=== PATIENT | female | born 1945 | race Caucasian/White ===

== ENCOUNTER → 2019-12-05 | Outpatient (CLI) | payer MEDICARE | END | disposition home or self-care (01) | LOC: CFH 12:02 | PROVIDERS: ATTEND Family Medicine | DX: N60.02 Solitary cyst of left breast (principal); N63.10 Unspecified lump in the right breast, unspecified quadrant | CPT/HCPCS: 76642; 77066; G0279 ==

== ENCOUNTER 2019-12-22 11:54 | Outpatient (CLI) | payer MEDICARE ==
[2019-12-22] MEDS ORDERED: SODIUM BICARBONATE 4.0%, 5ML ONE (12:30)
[2019-12-22] MEDS ORDERED: LIDOCAINE 1%, 20ML ONE (12:30)
[2019-12-22] MEDS ORDERED: LIDOCAINE 1%-EPI 1:100K, 20ML ONE (12:30)
== END 2019-12-22 23:59 | disposition home or self-care (01) ==
LOC: CFH 11:54
PROVIDERS: ATTEND Family Medicine
DX: N64.52 Nipple discharge (principal); N63.10 Unspecified lump in the right breast, unspecified quadrant; D24.1 Benign neoplasm of right breast
CPT/HCPCS: 19083; 77065; 88305; J3490; 19285

== ENCOUNTER 2020-03-29 08:55 | Outpatient (CLI) | payer MEDICARE ==
[2020-03-29] MEDS ORDERED: DULO60CA7 PO (09:52)
[2020-03-29] MEDS ORDERED: LOSA1TAB19 PO (09:52)
[2020-03-29] MEDS ORDERED: PANT40TA5 PO (09:52)
[2020-03-29] MEDS ORDERED: MULT-658 PO (09:52)
[2020-03-29] MEDS ORDERED: DULO30CA2 PO (09:52)
[2020-03-29] MEDS ORDERED: AMLO-150 PO (09:52)
[2020-03-29] MEDS ORDERED: POLY17PO5 PO (09:52)
[2020-03-29] MEDS ORDERED: ACET-1600 PO (09:52)
[2020-03-29] MEDS ORDERED: oxybutynin PO (09:52)
[2020-03-29] MEDS ORDERED: ATOR20TA37 PO (09:52)
[2020-03-29] MEDS ORDERED: METF500T17 PO (09:52)
[2020-03-29 10:30] LABS: ALBUMIN 3.9 g/dL (3.4-5.0); ANION GAP 8 mmol/L (5-15); CALCIUM 9.6 mg/dL (8.5-10.1); CHLORIDE 105 mmol/L (98-107)
[2020-03-29 10:33] LABS: ALANINE AMINOTRANSFERASE 20 U/L (12-78); ALKALINE PHOSPHATASE 98 U/L (45-117); BILIRUBIN,TOTAL 0.6 mg/dL (0.2-1.0); CREATININE 0.78 mg/dL (0.55-1.02); TOTAL PROTEIN 7.5 g/dL (6.4-8.2)
== END 2020-03-29 23:59 | disposition home or self-care (01) ==
LOC: STAR 08:55
PROVIDERS: ATTEND Surgery
DX: Z01.818 Encounter for other preprocedural examination (principal); Z11.59 Encounter for screening for other viral diseases
CPT/HCPCS: 36415; 80053; 93005; U0001

== ENCOUNTER 2020-04-02 05:43 | Day surgery (SDC) | payer MEDICARE ==
[~2020-04-02] VITALS: Ht 171.4 cm; Wt 99.8 kg
[~2020-04-02 05:43] MED LIST: ACET-1600 PO; AMLO-150 PO; ATOR20TA37 PO; DULO30CA2 PO; DULO60CA7 PO; LOSA1TAB19 PO; METF500T17 PO; MULT-658 PO; PANT40TA5 PO; POLY17PO5 PO; oxybutynin PO
[2020-04-02] MEDS ORDERED: CHLORHEXIDINE 15 ML UDC MM ONE (06:00)
[2020-04-02] MEDS ORDERED: LACTATED RINGERS 1,000 ML IV SCH (06:00)
[2020-04-02 06:05] VITALS: BP 132/84
[2020-04-02] MEDS ORDERED: BUPIVACAINE/PF-EPI 0.5% 1:200K ONE (06:52)
[2020-04-02] MEDS ORDERED: FENTANYL PF 100 MCG/2ML ONE ×2 (07:10→07:59)
[2020-04-02] MEDS ORDERED: MIDAZOLAM 1 MG/ML, 2ML ONE (07:10)
[2020-04-02] MEDS ORDERED: ONDANSETRON ODT 8 MG ONE (07:12)
[2020-04-02] MEDS ORDERED: ACETAMINOPHEN 500 MG TABLET ONE (07:13)
[2020-04-02] MEDS ORDERED: DEXAMETHASONE 4 MG/ML, 1ML ONE (07:18)
[2020-04-02] MEDS ORDERED: CEFAZOLIN 1,000 MG ONE (07:18)
[2020-04-02] MEDS ORDERED: PROPOFOL 10 MG/ML, 20ML ONE (07:18)
[2020-04-02] MEDS ORDERED: ONDANSETRON ODT 8 MG PO ONE (07:30)
[2020-04-02] MEDS ORDERED: ACETAMINOPHEN 500 MG TABLET PO ONE (07:30)
[2020-04-02] MEDS ORDERED: OXYcodone 5 MG/5 ML ORAL.SOL UDC ONE (07:59)
[2020-04-02] MEDS ORDERED: KETOROLAC 30 MG/1 ML ONE (07:59)
[2020-04-02] MEDS ORDERED: ONDANSETRON 2MG/ML, 2ML IVPush PRN (08:00)
[2020-04-02] MEDS ORDERED: HYDROmorphone 1 MG/ML, 1ML INJ IVPush PRN (08:00)
[2020-04-02] MEDS ORDERED: OXYcodone 5 MG/5 ML ORAL.SOL UDC PO PRN (08:00)
[2020-04-02] MEDS ORDERED: KETOROLAC 30 MG/1 ML IV PRN (08:00)
[2020-04-02] MEDS ORDERED: FENTANYL PF 100 MCG/2ML IV PRN (08:00)
== END 2020-04-02 10:15 | disposition home or self-care (01) ==
LOC: OR 05:43
PROVIDERS: ATTEND Surgery
DX: D24.1 Benign neoplasm of right breast (principal); I10 Essential (primary) hypertension; E11.40 Type 2 diabetes mellitus with diabetic neuropathy, unspecified; E78.00 Pure hypercholesterolemia, unspecified; M85.80 Other specified disorders of bone density and structure, unspecified site; M19.90 Unspecified osteoarthritis, unspecified site; Z79.84 Long term (current) use of oral hypoglycemic drugs; Z79.899 Other long term (current) drug therapy; Z87.891 Personal history of nicotine dependence; Z88.5 Allergy status to narcotic agent; Z90.49 Acquired absence of other specified parts of digestive tract; Z90.710 Acquired absence of both cervix and uterus; Z98.890 Other specified postprocedural states; Z80.3 Family history of malignant neoplasm of breast; Z83.3 Family history of diabetes mellitus; Z82.49 Family history of ischemic heart disease and other diseases of the circulatory system; Z80.8 Family history of malignant neoplasm of other organs or systems; Z83.42 Family history of familial hypercholesterolemia
CPT/HCPCS: 19125; 76098; 82962; 88307; J0690; J1100; J1885; J2250; J2704; J3010; J7120; Q0162

== ENCOUNTER 2020-04-18 10:45 | Outpatient (CLI) | payer MEDICARE ==
[2020-04-18] MEDS ORDERED: REGADENOSON 0.4 MG/5 ML SYRINGE ONE (13:54)
== END 2020-04-18 23:59 | disposition home or self-care (01) ==
LOC: CFH 10:45
PROVIDERS: ATTEND Internal Medicine Cardiovascular Disease
DX: I10 Essential (primary) hypertension (principal); Z82.49 Family history of ischemic heart disease and other diseases of the circulatory system
CPT/HCPCS: 78452; 93017; 93306; A9502; J2785

== ENCOUNTER 2021-01-16 10:12 | Outpatient (CLI) | payer MEDICARE ==
[~2021-01-16 10:12] MED LIST changes: -PANT40TA5 PO; +PANT40TA6 PO
== END 2021-01-16 23:59 | disposition home or self-care (01) ==
LOC: CFH 10:12
PROVIDERS: ATTEND Internal Medicine
DX: Z02.9 Encounter for administrative examinations, unspecified (principal)

== ENCOUNTER → 2021-02-26 | Outpatient (CLI) | payer MEDICARE | END | disposition home or self-care (01) | LOC: CFH 09:46 | PROVIDERS: ATTEND Internal Medicine | DX: N63.12 Unspecified lump in the right breast, upper inner quadrant (principal); N64.9 Disorder of breast, unspecified | CPT/HCPCS: 76642; 77062; 77066; G0279 ==

== ENCOUNTER → 2021-03-29 | Outpatient (CLI) | payer MEDICARE ==
[~2021-03-29] MED LIST changes: +ARIP2TAB2 PO; +ATOR40TA78 PO; +CARV6.2512 PO; +CHOL10003 PO; +HYDR1TAB53 PO; +LIDOCAINE 1%-EPI 1:100K, 20ML ONE; +LOSA25TA25 PO
== END | disposition home or self-care (01) ==
LOC: CFH 09:47
PROVIDERS: ATTEND Surgery
DX: D24.1 Benign neoplasm of right breast (principal); E11.9 Type 2 diabetes mellitus without complications; I10 Essential (primary) hypertension; E78.00 Pure hypercholesterolemia, unspecified; M19.90 Unspecified osteoarthritis, unspecified site; M85.80 Other specified disorders of bone density and structure, unspecified site; Z79.84 Long term (current) use of oral hypoglycemic drugs; Z79.899 Other long term (current) drug therapy; Z87.891 Personal history of nicotine dependence; Z90.49 Acquired absence of other specified parts of digestive tract; Z90.710 Acquired absence of both cervix and uterus; Z98.890 Other specified postprocedural states; Z82.49 Family history of ischemic heart disease and other diseases of the circulatory system; Z83.3 Family history of diabetes mellitus; Z80.8 Family history of malignant neoplasm of other organs or systems
CPT/HCPCS: 19285; 77065

== ENCOUNTER → 2021-04-02 | Outpatient (CLI) | payer MEDICARE ==
[~2021-04-02] MED LIST changes: -LIDOCAINE 1%-EPI 1:100K, 20ML ONE
[2021-04-02 12:42] LABS: CHLORIDE 105 mmol/L (98-107)
[2021-04-02 12:52] LABS: ALANINE AMINOTRANSFERASE 19 U/L (12-78); ALBUMIN 3.6 g/dL (3.4-5.0); ALKALINE PHOSPHATASE 99 U/L (45-117); ANION GAP 4 mmol/L (5-15); BILIRUBIN,TOTAL 0.4 mg/dL (0.2-1.0); CALCIUM 9.2 mg/dL (8.5-10.1); CREATININE 0.63 mg/dL (0.55-1.02)
== END | disposition home or self-care (01) ==
LOC: STAR 10:22
PROVIDERS: ATTEND Surgery
DX: Z01.818 Encounter for other preprocedural examination (principal); N63.10 Unspecified lump in the right breast, unspecified quadrant; I49.1 Atrial premature depolarization; Z20.822 Contact with and (suspected) exposure to COVID-19
CPT/HCPCS: 36415; 80053; 93005; U0003; U0005

== ENCOUNTER → 2021-04-11 | Outpatient (CLI) | payer MEDICARE | END | disposition home or self-care (01) | LOC: STAR 12:10 | PROVIDERS: ATTEND Internal Medicine | DX: Z20.822 Contact with and (suspected) exposure to COVID-19 (principal) | CPT/HCPCS: U0003; U0005 ==

== ENCOUNTER 2021-04-15 12:19 | Day surgery (SDC) | payer MEDICARE ==
[~2021-04-15] VITALS: Ht 172.7 cm; Wt 97.8 kg
[2021-04-15] MEDS ORDERED: CHLORHEXIDINE 15 ML UDC PO ONE (13:00)
[2021-04-15] MEDS ORDERED: LACTATED RINGERS 1,000 ML IV SCH (13:00)
[2021-04-15 13:01] VITALS: BP 129/72
[2021-04-15] MEDS ORDERED: CHLORHEXIDINE 15 ML UDC ONE (13:05)
[2021-04-15] MEDS ORDERED: DEXAMETHASONE 4 MG/ML, 1ML ONE (14:16)
[2021-04-15] MEDS ORDERED: ONDANSETRON 2MG/ML, 2ML ONE (14:16)
[2021-04-15] MEDS ORDERED: FENTANYL PF 100 MCG/2ML ONE ×3 (14:16→15:21)
[2021-04-15] MEDS ORDERED: CEFAZOLIN 1,000 MG ONE (14:16)
[2021-04-15] MEDS ORDERED: PROPOFOL 10 MG/ML, 20ML ONE (14:16)
[2021-04-15] MEDS ORDERED: PHENYLEPHRINE 10 MG/ML ONE (14:16)
[2021-04-15] MEDS ORDERED: HYDR-2214 PO (14:24)
[2021-04-15] MEDS ORDERED: LABETALOL 5MG/ML, 20ML IV PRN (14:30)
[2021-04-15] MEDS ORDERED: ACETAMINOPHEN 325 MG TABLET PO PRN (14:30)
[2021-04-15] MEDS ORDERED: hydrALAzine 20 MG/ML, 1ML IV PRN (14:30)
[2021-04-15] MEDS ORDERED: MEPERIDINE/PF 25MG/0.5ML IVPush PRN (14:30)
[2021-04-15] MEDS ORDERED: morphine SULFATE 10 MG/ML, 1ML IVPush PRN (14:30)
[2021-04-15] MEDS ORDERED: OXYcodone 5 MG/5 ML ORAL.SOL UDC PO PRN (14:30)
[2021-04-15] MEDS ORDERED: HYDROmorphone 1 MG/ML, 1ML INJ IVPush PRN (14:30)
[2021-04-15] MEDS ORDERED: HALOPERIDOL 5 MG/ML IV PRN (14:30)
[2021-04-15] MEDS ORDERED: PROMETHAZINE 25 MG/ML, 1ML IVPush PRN (14:30)
[2021-04-15] MEDS ORDERED: BUPIVACAINE/PF 0.5% INFIL ONE (14:33)
[2021-04-15] MEDS ORDERED: EPINEPHRINE 1 MG/ML, 1ML INFIL ONE (14:34)
[2021-04-15] MEDS ORDERED: OXYcodone 5 MG/5 ML ORAL.SOL UDC ONE (14:50)
[2021-04-15] MEDS: FENTANYL PF 100 MCG/2ML IV PRN ×4 (14:51→15:22)
[2021-04-15] MEDS ORDERED: ACETAMINOPHEN 650 MG/20.3 ML UDC ONE (15:01)
== END 2021-04-15 16:30 | disposition home or self-care (01) ==
LOC: OUT 12:19
PROVIDERS: ATTEND Surgery
DX: D24.1 Benign neoplasm of right breast (principal); G47.33 Obstructive sleep apnea (adult) (pediatric); E66.9 Obesity, unspecified; J44.9 Chronic obstructive pulmonary disease, unspecified; I10 Essential (primary) hypertension; F41.9 Anxiety disorder, unspecified; F32.9 Major depressive disorder, single episode, unspecified; E11.40 Type 2 diabetes mellitus with diabetic neuropathy, unspecified; K21.9 Gastro-esophageal reflux disease without esophagitis; E78.5 Hyperlipidemia, unspecified; Z88.5 Allergy status to narcotic agent; Z79.899 Other long term (current) drug therapy; Z87.891 Personal history of nicotine dependence; Z98.890 Other specified postprocedural states; Z72.89 Other problems related to lifestyle; Z68.32 Body mass index [BMI] 32.0-32.9, adult
CPT/HCPCS: 19120; 76098; 82962; 88305; J0171; J0690; J1100; J2370; J2405; J2704; J3010; J7120

== ENCOUNTER → 2021-06-19 | Outpatient (CLI) | payer MEDICARE ==
[~2021-06-19] MED LIST changes: +HYDR-2214 PO
[2021-06-19 09:51] LABS: ALANINE AMINOTRANSFERASE 15 U/L (12-78); ALBUMIN 3.5 g/dL (3.4-5.0); ANION GAP 8 mmol/L (5-15); CALCIUM 9.4 mg/dL (8.5-10.1); CHLORIDE 108 mmol/L (98-107); CHOLESTEROL, TOTAL 146 mg/dL (140-239); TRIGLYCERIDES 150 mg/dL (50-200); VLDL CHOLESTEROL 30 mg/dL (0-25)
[2021-06-19 09:54] LABS: ALKALINE PHOSPHATASE 98 U/L (45-117); BILIRUBIN,TOTAL 0.5 mg/dL (0.2-1.0); CHOL/HDL RATIO 3.5; HDL CHOL % 29 % (28-40); HDL CHOLESTEROL (DIRECT) 42 mg/dL (40-60); LDL CHOLESTEROL,CALCULATED 74 mg/dL (54-169); LDL/HDL RATIO 1.8 (0.5-3.0); TOTAL PROTEIN 6.9 g/dL (6.4-8.2)
== END | disposition home or self-care (01) ==
LOC: LAB 09:25
PROVIDERS: ATTEND Internal Medicine Cardiovascular Disease
DX: I10 Essential (primary) hypertension (principal); E78.5 Hyperlipidemia, unspecified; E11.42 Type 2 diabetes mellitus with diabetic polyneuropathy
CPT/HCPCS: 36415; 80053; 80061; 83036